=== PATIENT | male | born 1960 | race Caucasian/White ===

== ENCOUNTER 2023-02-02 12:49 | Outpatient (OUT) | payer OTHER, SELFPAY ==
--- NOTE | 2023-02-02 12:57 | US_ITS ---
[facility] [id number] Patient Name: JOSE RAFAEL MCCORMICK MRN: [id number] date: 1960 Sex: M Assigned Patient Location: LAB Current Patient Location: Accession/Order Number: [id number] Exam Date: 02/02/2023 13:00 Report Date: 02/03/2023 12:54 At the request of: AMMON BAE Procedure: US soft tissue head and neck EXAM: US soft tissue head and neck 02/03/2023 9:50 AM PDT, [id number] HISTORY: Lymphadenopathy Cervical R59.0. TECHNIQUE: Multiple longitudinal and transverse grayscale and color sonographic images of the left lateral mid neck were acquired. COMPARISON: None. FINDINGS/IMPRESSION: Targeted evaluation in the left lateral mid neck at the palpable lumps demonstrates 2 round hypoechoic masses which demonstrate mild internal vascularity. The larger of the 2 measures 11 x 8 x 6 mm and the smaller measures 6 x 5 x 4 mm. Fatty eleuterio are present in both masses. Cortical thickness of the larger mass is 2 mm. Image appearance favors mildly prominent lymph nodes which could be reactive although early lymphoma or early metastatic disease could have a similar appearance. Recommend clinical follow-up and CT of the neck with contrast if there is worsening signs/symptoms. Electronically authenticated by: ALEJANDRA QUINTEROS Date: 02/03/2023 12:54
== END 2023-02-02 12:50 | disposition home or self-care (01) ==
LOC: US 12:51
PROVIDERS: PCP Family Medicine; Visit Provider Family Medicine
DX: R59.0 Localized enlarged lymph nodes (principal)
CPT/HCPCS: 76536

== ENCOUNTER 2023-02-05 10:20 | Outpatient (OUT) | payer OTHER, SELFPAY ==
[2023-02-05 10:46] LABS: Basophils Absolute Auto 0.1 10^3/uL (0.0-0.1); Basophils Percent Auto 1.1 % (0.2-2.0); Eosinophils Absolute Auto 0.1 10^3/uL (0.0-0.7); Hematocrit 45.6 % (42.0-54.0); Immature Granulocytes Abs Auto 0.01 10^3/uL (0.00-0.03); Immature Granulocytes Pct Auto 0.2 % (0.0-0.5); Lymphocytes Absolute Auto 1.8 10^3/uL (1.2-3.8); Lymphocytes Percent Auto 33.1 % (20.5-60.0); Mean Corpuscular HGB Conc 37.3 g/dL (29.9-35.2); Mean Corpuscular Hemoglobin 32.3 pg (25.9-34.0); Mean Corpuscular Volume 86.7 fL (80.0-94.0); Monocytes Absolute Auto 0.9 10^3/uL (0.3-0.8); Neutrophils Absolute Auto 2.6 10^3/uL (1.4-6.5); Neutrophils Percent Auto 47.6 % (43.0-75.0); Platelet Count 251 10^3/uL (150-450); Red Blood Count 5.26 10^6/uL (4.70-6.10); Red Cell Distribution Width 12.8 % (11.0-15.0); White Blood Count 5.4 10^3/uL (4.0-11.0)
[2023-02-05 11:18] LABS: Estimated Average Glucose 117 mg/dL; Glycohemoglobin A1C 5.7 % (4.5-6.2)
[2023-02-05 11:59] LABS: Prostate Specific Antigen Scrn 1.67 ng/mL (<=4.00)
[2023-02-05 12:01] LABS: Alanine Aminotransferase 48 U/L (16-63); Albumin Globulin Ratio 1.1; Alkaline Phosphatase 62 U/L (46-116); Anion Gap 10.6; Aspartate Amino Transferase 26 U/L (15-37); BUN Creatinine Ratio 13.2; Bilirubin Direct 0.1 mg/dL (0.0-0.2); Bilirubin Total 0.4 mg/dL (0.2-1.0); Calcium 9.7 mg/dL (8.5-10.1); Carbon Dioxide 28.3 mmol/L (21.0-32.0); Chloride 96 mmol/L (98-107); Chol HDL Ratio 5.9; Cholesterol 202 mg/dL (<=200); Estimated GFR (African America >60 (>=60); Estimated GFR (Non-African Ame >60 (>=60); Globulin 3.8 g/dL; Glucose 107 mg/dL (74-106); HDL Cholesterol 34 mg/dL (40-60); Potassium 3.9 mmol/L (3.5-5.1); Sodium 131 mmol/L (136-145); Thyroid Stimulating Hormone 1.535 uIU/mL (0.358-3.740); Total Protein 7.8 g/dL (6.4-8.2); Triglycerides 199 mg/dL (<=150); VLDL CHOLESTEROL 39.8 mg/dL
== END 2023-02-05 10:21 | disposition home or self-care (01) ==
LOC: LAB 10:20
PROVIDERS: PCP Family Medicine; Visit Provider Family Medicine
DX: Z00.00 Encounter for general adult medical examination without abnormal findings (principal)
CPT/HCPCS: 36415; 80048; 80061; 80076; 83036; 84153; 84154; 84443; 85025; G0103

== ENCOUNTER 2023-02-13 13:23 | Outpatient (OUT) | payer OTHER, SELFPAY ==
--- NOTE | 2023-02-13 13:31 | CT_ITS ---
[address] [address] Patient Name: JOSE RAFAEL MCCORMICK MRN: [id number] date: 1960 Sex: M Assigned Patient Location: CT Current Patient Location: Accession/Order Number: [id number] Exam Date: 02/13/2023 14:00 Report Date: 02/15/2023 07:19 At the request of: AMMON BAE Procedure: CT soft tissue neck w con EXAM: CT scan of the neck using 98 mL of IV iodinated contrast. Dose reduction technique used: Automated exposure control and/or adjustment of the mA and/or kV according to patient size and/or use of iterative reconstruction technique. REASON FOR EXAM: Lymphadenopathy R59.0 COMPARISON: None FINDINGS: No abscess, fluid collection or soft tissue emphysema in the neck. No inflammatory changes in the neck. No cervical lymphadenopathy. No abnormal soft tissue masses. Patent vascular structures in the neck. Normal-appearing lymph nodes are present at the area of the marker overlying the left lateral neck. Calcification along the medial superior aspect of the right submandibular gland measuring approximately [address]/CT soft tissue neck w con IMPRESSION: 1. No abnormal mass or evidence of malignancy in the neck. 2. Possible right submandibular sialogram cholelithiasis. Electronically authenticated by: MICH JARRETT Date: 02/15/2023 07:19
== END 2023-02-13 13:24 | disposition home or self-care (01) ==
LOC: CT 13:24
PROVIDERS: PCP Family Medicine; Visit Provider Family Medicine
DX: R59.0 Localized enlarged lymph nodes (principal)
CPT/HCPCS: 70491; Q9967

== ENCOUNTER 2023-02-23 08:51 | Outpatient (OUT) | payer OTHER, SELFPAY ==
--- NOTE | 2023-02-23 12:30 | P.STRESS_ITS ---
Stress Test Stress Test Requesting physician: López Bolivar Procedure: Exercise stress test General Information: Reason for Stress Test: Chest pain Cardiac History and Risk Factors: Dnies any personal history. Mother has CHF. Resting 12 - Lead Electrocardiogram: Rate & rhythm: Normal sinus at a rate of 90. Goldvein: Right axis deviation T-waves: Normal orientation ST-segments: Normal Stress Test: Protocol: Juan F protocol was followed. Exercise capacity: Good exercise capacity. Total exercise time of 8 minutes reached Juan F stage 3 at 3.4MPH, 14% grade, & 8.3 METs. Blood pressure: Initial: 132/88, Maximum: 216/102, Recovery: 148/88 Rate & rhythm: Patient remained in sinus rhythm during the exercise and recovery portions of the study.? The maximum heart rate was 136, which was 85% of the maximum predicted heart rate 160. ST-segments & T-waves: During recovery, there initially was downsloping in lead III which evolved into 1mm ST segment depression at the end of the recovery period. No changes were noted in II or aVF. Patient response/symptoms: There were no symptoms similar to the chief complaint. Interpretation: This is a non-diagnostic exercise stress test based on ST-segment changes in III only. Holt Treadmill Score is 3, which places patient in a moderate risk category. Clinical correlation required.
== END 2023-02-23 08:52 | disposition home or self-care (01) ==
LOC: CARD 08:51
PROVIDERS: PCP Family Medicine; Visit Provider Family Medicine
DX: R07.9 Chest pain, unspecified (principal)
CPT/HCPCS: 93017

== ENCOUNTER 2023-03-24 14:17 | Emergency (ER) | payer OTHER, SELFPAY ==
[2023-03-24 14:19] VITALS: BP 141/93; PULSE 108; RESP 18; TEMP 37.1; O2SAT 95; BMI 34.5
--- NOTE | 2023-03-24 14:32 | ED_ITS ---
Documented by User: MARCIAL Lyon 03/24/23 14:36 HPI - URI/Sore Throat General Chief Complaint: Upper Respiratory Infection Stated Complaint: COUGH Time Seen by Provider: 03/24/23 14:31 Source: patient Limitations: no limitations History of Present Illness HPI Narrative: 62-year-old male presents with a cough for the past 3 days. He states that he has tried Robitussin-DM [id number] and is not giving him relief. He states that he is here wanting a cough medication. Him and his mother, who is also sick, took an at home COVID test last night and both were negative. Denies fever, SOB or CP Related Data Previous Rx's Medication Instructions Recorded albuterol sulfate 90 mcg/actuation 1 inh inhalation Q6H PRN shortness 03/24/23 aerosol inhaler of breath or wheezing 5 days #6.7 grams benzonatate 200 mg capsule 200 mg PO TID PRN cough 5 days #15 03/24/23 caps Allergies Allergy/AdvReac Type Severity Reaction Status Date / Time No Known Drug Allergies Allergy Verified 03/24/23 14:19 Review of Systems ROS Status of ROS 10 or more systems reviewed and unremarkable except as noted in history and below PFSH PFSH Social History Smoking status: Never smoker Exam Narrative Exam Narrative: General: A&Ox3, no distress, talking in full an complete sentences skin: warm, dry, intact head: normocephalic, atraumatic eyes: PERRLA, EOMI, normal conjunctiva nose: nares patent throat: no stridor neck: supple, trachea midline cardiac: +S1/S1. no murmur respiratory: Expiratory wheezing throughout, coughing with deep breaths, non- labored, no retractions extremities: FROM x 4, strength +5/5 neuro: A&Ox3 psych: appropriate mood and affect, cooperative Constitutional Vital Signs, click to edit/add: Last Vital Signs Temp 98.8 F 03/24/23 14:19 Pulse 85 03/24/23 14:45 Resp 16 03/24/23 14:45 BP 141/93 H 03/24/23 14:19 Pulse Ox 96 03/24/23 14:45 O2 Del Method Room Air 03/24/23 14:45 Course Vital Signs Vital signs: Vital Signs Temperature 98.8 F 03/24/23 14:19 Pulse Rate 108 H 03/24/23 14:19 Respiratory Rate 18 03/24/23 14:19 Blood Pressure 141/93 H 03/24/23 14:19 Pulse Oximetry 95 03/24/23 14:19 Oxygen Delivery Method Room Air 03/24/23 14:19 Temperature 98.8 F 03/24/23 14:19 Pulse Rate 85 03/24/23 14:45 Respiratory Rate 16 03/24/23 14:45 Blood Pressure 141/93 H 03/24/23 14:19 Pulse Oximetry 96 03/24/23 14:45 Oxygen Delivery Method Room Air 03/24/23 14:45 MDM - URI/Sore Throat MDM Narrative Medical decision making narrative: I offered a chest x-ray and patient declines. Likely viral bronchitis and he is medicated with Decadron and given a prescription for albuterol inhaler and Tessalon Perles. Repeat pulse 90. F/u with PCP. afebrile, not tachypneic, not tachycardic, tolerating p.o., not hypoxic, non toxic appearing and ambulating at baseline and hemodynamically stable to be d/c. answered all questions. educated on SE of meds. pt in agreement with tx. educated when to return to ER. Discharge Plan Discharge Chief Complaint: Upper Respiratory Infection Clinical Impression: Acute bronchitis, viral Patient Disposition: Home, Self-Care Time of Disposition Decision: 14:32 Condition: Good Mode of Transportation: Private Vehicle Prescriptions / Home Meds: New albuterol sulfate 90 mcg/actuation HFA aerosol inhaler 1 inh inhalation Q6H PRN (Reason: shortness of breath or wheezing) 5 Days Qty: 6.7 0RF benzonatate 200 mg capsule 200 mg PO TID PRN (Reason: cough) 5 Days Qty: 15 0RF Instructions: Acute Bronchitis (ED) Stand Alone Forms: Portal Instructions Referrals: López Bolivar MD [Primary Care Provider] - 1 week Discharge Date/Time: 03/24/23 14:47 Documented by User: Ubaldo Veliz MD 03/24/23 19:37 HPI - URI/Sore Throat General Chief Complaint: Upper Respiratory Infection Stated Complaint: COUGH Time Seen by Provider: 03/24/23 14:31 Related Data Previous Rx's Medication Instructions Recorded albuterol sulfate 90 mcg/actuation 1 inh inhalation Q6H PRN shortness 03/24/23 aerosol inhaler of breath or wheezing 5 days #6.7 grams benzonatate 200 mg capsule 200 mg PO TID PRN cough 5 days #15 03/24/23 caps Allergies Allergy/AdvReac Type Severity Reaction Status Date / Time No Known Drug Allergies Allergy Verified 03/24/23 14:19 PFSH PFSH Social History Smoking status: Never smoker Exam Constitutional Vital Signs, click to edit/add: Last Vital Signs Temp 98.8 F 03/24/23 14:19 Pulse 85 03/24/23 14:45 Resp 16 03/24/23 14:45 BP 141/93 H 03/24/23 14:19 Pulse Ox 96 03/24/23 14:45 O2 Del Method Room Air 03/24/23 14:45 Course Vital Signs Vital signs: Vital Signs Temperature 98.8 F 03/24/23 14:19 Pulse Rate 108 H 03/24/23 14:19 Respiratory Rate 18 03/24/23 14:19 Blood Pressure 141/93 H 03/24/23 14:19 Pulse Oximetry 95 03/24/23 14:19 Oxygen Delivery Method Room Air 03/24/23 14:19 Temperature 98.8 F 03/24/23 14:19 Pulse Rate 85 03/24/23 14:45 Respiratory Rate 16 03/24/23 14:45 Blood Pressure 141/93 H 03/24/23 14:19 Pulse Oximetry 96 03/24/23 14:45 Oxygen Delivery Method Room Air 03/24/23 14:45 MDM - URI/Sore Throat MDM Narrative Medical decision making narrative: I offered a chest x-ray and patient declines. Likely viral bronchitis and he is medicated with Decadron and given a prescription for albuterol inhaler and Tessalon Perles. Repeat pulse 90. F/u with PCP. afebrile, not tachypneic, not tachycardic, tolerating p.o., not hypoxic, non toxic appearing and ambulating at baseline and hemodynamically stable to be d/c. answered all questions. educated on SE of meds. pt in agreement with tx. educated when to return to ER. I, Dr Veliz, have reviewed the above progress note and course of action in the ER; agree with the above. I have personally seen and evaluated this patient, gone over history and physical, and discussed disposition and treatment plan with the patient. Discharge Plan Discharge Chief Complaint: Upper Respiratory Infection Clinical Impression: Acute bronchitis, viral Patient Disposition: Home, Self-Care Time of Disposition Decision: 14:32 Condition: Good Mode of Transportation: Private Vehicle Prescriptions / Home Meds: New albuterol sulfate 90 mcg/actuation HFA aerosol inhaler 1 inh inhalation Q6H PRN (Reason: shortness of breath or wheezing) 5 Days Qty: 6.7 0RF benzonatate 200 mg capsule 200 mg PO TID PRN (Reason: cough) 5 Days Qty: 15 0RF Instructions: Acute Bronchitis (ED) Stand Alone Forms: Portal Instructions Referrals: López Bolivar MD [Primary Care Provider] - 1 week Discharge Date/Time: 03/24/23 14:47
[2023-03-24] MEDS: DEXAMETHASONE SODIUM PHOSPHATE 10 MG/ML VIAL PO (14:41)
[2023-03-24 14:45] VITALS: PULSE 85; RESP 16; O2SAT 96
== END 2023-03-24 14:47 | disposition home or self-care (01) ==
PROVIDERS: Emergency Provider Emergency Medicine; PCP Family Medicine
DX: J20.9 Acute bronchitis, unspecified (principal)
CPT/HCPCS: 99283; J1100

== ENCOUNTER 2023-04-20 07:34 | Outpatient (OUT) | payer OTHER, SELFPAY ==
--- NOTE | 2023-04-20 | PCN_ITS ---
CARDIAC STRESS TEST Requesting Physician:? Procedure Date:? 04/20/2023 REASON FOR STRESS TEST:? Chest pain. At baseline, patient was noted to have a resting heart rate of 100 beats per minute.? EKG revealed the presence of sinus tachycardia with normal intervals.? Patient exercised to achieve 7 METS, which was achieved with stage 2.? He exercised for a total of 6 minutes and 46 seconds.? There was a change in heart rate from 100 beats per minute to a maximum of 136 beats per minute, achieving a blood pressure from baseline of 134/90 mm/Hg, to a maximum blood pressure 178/110 mm/Hg.? During this time of exercise in stage 2, there was an occasional PVC that was noted in both stage 2 and stage 3 of exercise.? There were no EKG changes suggestive of ischemia in terms of ST elevation or ST segment depression noted during the time of exercise.? Except for an isolated PVC, no other arrhythmias were noted during exercise. IMPRESSION: 1.? No EKG evidence of ischemia noted with < > 2.? Patient did not achieve the expected heart rate, thus raising the concern of chronotropic incompetence.? It is unclear whether the patient was on beta blockers at this time. 3.? Significantly elevated blood pressure readings noted with exercise, which is appropriately noted, but diastolic component is markedly elevated. 4.? Isolated PVC noted during exercise in stage 2 and stage 3 of exercise. 5.? Holt treadmill score of 1.5 indicative of moderate risk of cardiac event. MTDD
--- NOTE | 2023-04-20 07:30 | NM_ITS ---
Patient: JOSE RAFAEL MCCORMICK Exam Date: 04/20/2023 : 1960 Gender:M Ordering : JOSE HARO Admission #: [id number] Family : DR López Bolivar . Order #: [id number] CLICK HERE TO VIEW EXAM RADIOLOGY REPORT PROCEDURE: NM RIRI PERF SPECT REST STR COMPARISON: None. INDICATIONS: CHEST PAIN, DYSPNEA ON EXERTION TECHNIQUE: Exam Description: Stress/Rest one day protocol gated SPECT Rest Imagin.6 mCi Tc-99m Cardiolite IV on 04/20/2023 Stress Imaging 31.4 mCi Tc-99m Cardiolite IV on 04/20/2023 Exercise Protocol: Juan F Heart Rate (bpm): Rest: 100 Max: 136 PMHR: 85 Blood Pressure: Rest: 134/90 Max: 178/110 Exercise Time: Minutes: 6 Seconds: 46 Stage Reached: Stage: 3 Mets 7.0 Symptoms: Rest and peak stress ECG findings were normal and the exercise portion of the study was abnormal per attending physician Dr. Flores due to blood pressure. For more details please see separate cardiac stress test report. FINDINGS: QUALITY OF STUDY: Excellent. PERFUSION DEFECT: None. LOCATION: N/A SIZE: N/A. SEVERITY: N/A. TYPE: N/A. WALL MOTION: Normal. LV SIZE: Normal. 63 mL. TID / TCD: None; 0.8 LVEF: Normal. Calculated EF 80%. SUMMARY: Myocardial perfusion imaging study is NORMAL. CONCLUSION: 1. Normal nuclear medicine myocardial perfusion scan. Dictated by: John Panda M.D. on 04/22/2023 at 14:53 Approved by: John Panda M.D. on 04/22/2023 at 14:57
== END 2023-04-20 07:35 | disposition home or self-care (01) ==
LOC: NM 07:35
PROVIDERS: PCP Family Medicine; Visit Provider Internal Medicine Cardiovascular Disease
DX: R07.9 Chest pain, unspecified (principal); R06.09 Other forms of dyspnea
CPT/HCPCS: 78452; 93017; A9500

== ENCOUNTER 2023-08-25 09:43 | Outpatient (OUT) | payer OTHER, SELFPAY ==
--- OUTSIDE RECORDS SUMMARY | 2023-08-25 09:52 | XMS_ITS | CCD ---
Author Name Unknown Address [address] [place] [address] Organization [facility] Care Team Providers Care Naturalization Examiner Name Role Phone PHYSICIAN, DEFAULT Unavailable Unavailable PHYSICIAN, DEFAULT Unavailable Unavailable NATHALIA CAMACHO Unavailable Unavailable NATHALIA CAMACHO Unavailable Unavailable KATHIA, LÓPEZ Unavailable Unavailable KATHIA, LÓPEZ Unavailable Unavailable López Bae Primary Care Provider MD López Bae Primary Care Provider [phone] Eliezer, PhD Yoni Attending Provider KATHIA, DR LÓPEZ Ho Admitting Unavailable FAUSTINAERESd, DR LÓPEZ Ho Attending Unavailable KATHIA, DR LÓPEZ Ho Primary Care Unavailable KATHIA, DR LÓPEZ Ho Consulting Unavailable KATHIA, DR LÓPEZ Ho Admitting Unavailable NADLYNN, DR LÓPEZ Ho Attending Unavailable KATHIA, DR LÓPEZ Ho Primary Care Unavailable FAUSTINAERESd, DR LÓPEZ Ho Consulting Unavailable HAILE, DR DENTON Admitting Unavailable HAILE, DR DENTON Attending Unavailable KATHIA, DR LÓPEZ Ho Primary Care Unavailable SAVANNA, DR KRYSTIAN Bush Consulting Unavailable HAILE, DR DENTON Consulting Unavailable KATHIA, LÓPEZ Attending Unavailable JOSE HARO Attending Unavailable OJSE HARO Attending Unavailable Medications Completed/Discontinued Medications Medication Drug Class(es) Dates Sig (Normalized) Sig (Original) atenolol 50 mg oral tablet (1 source) beta-Adrenergic Nelli End: 04-02-2012 take 1 tablet by mouth once daily atenolol 50 mg tablet Take 50 mg by mouth once daily. 0 04/02/2012 Discontinued Comment on above: Take 50 mg by mouth once daily. Cetirizine (2 sources) Histamine-1 Receptor Antagonist CETIRIZINE HCL (ZYRTEC ORAL) Take by mouth once daily. 0 Active Comment on above: Take by mouth once d aily. chlorthalidone 25 mg oral tablet (1 source) Thiazide-like Diuretic End: 04-02-2012 take 1 tablet by mouth once daily chlorthalidone 25 mg tablet Take 25 mg by mouth once daily. 0 04/02/2012 Discontinued Comment on above: Take 25 mg by mouth once daily. FLUoxetine 40 mg oral capsule (2 sources) Serotonin Reuptake Inhibitor take 1 capsule by mouth once daily Fluoxetine HCl 40 mg capsule Take 40 mg by mouth once daily. 0 Active Comment on above: Take 40 mg by mouth once daily. levETIRAcetam 500 mg oral tablet (2 sources) Start: 04-02-2012 End: 05-17-2012 leveTIRAcetam 500 mg tablet Take 1.5 tablets twice daily 0 04/02/2012 05/17/2012 Discontinued Start: 02-17-2012 End: 04-02-2012 take 1 tablet by mouth twice daily leveTIRAcetam 500 mg tablet Take 1 tablet by mouth twice daily. 90 tablet 5 02/17/2012 04/02/2012 Discontinued Comment on above: Take 1.5 tablets twi ce daily Take 1 tablet by ozzy th twice daily. 30/70 release 24 hr methylphenidate hydrochloride 40 mg extended release oral capsule (2 sources) Central Nervous System Stimulant End: 04-23-20 12 Methylphenidate (METADATE CD) 40 mg CR capsule Take 40 mg by mouth. 0 04/23/2012 Discontinued Comment on above: Take 40 mg by mouth. omeprazole 40 mg delayed release oral capsule (2 sources) Proton Pump Inhibitor take 1 capsule by mouth once daily Omeprazole 40 mg capsule Take 40 mg by mouth once daily. 0 Active Comment on above: Take 40 mg by mouth once daily. traZODone hydrochloride 100 mg oral tablet (2 sources) Serotonin Reuptake Inhibitor End: 05-12-20 12 take 1 tablet by mouth once daily at bedtime traZODONE 100 mg tablet Take 100 mg by mouth daily at bedtime. 0 05/12/2012 Discontinued (Erroneous entry) Comment on above: Take 100 mg by mouth daily at bedtime. Problems Active Problems Problem Classification Problem Date Documented Da te Episodic/Chronic Disorders of lipid metabolism (2 sources) Hyperlipidemia, unspecified; Translations: [Hyperlipidemia, unspecified] Onset: 02-26-2023 Chronic Joint disorders and dislocations; trauma-related (4 sources) Unspecified internal derangement of right knee; Translations: [UNS INTERNAL DERANGEMENT RIGHT KNEE] Onset: 05-15-2021 Chronic Other circulatory disease (1 source) Stricture of artery; Translations: [STRICTURE OF ARTERY] Onset: 11-05-2017 Chronic Other nervous system disorders (4 sources) Tremor, unspecified; Translations: [TREMOR, UNSPECIFIED] Onset: 11-05-2017 Episodic Other screening for suspected conditions (not mental disorders or infectious disease) (2 sources) Radiology result abnormal; Translations: [Abnormal findings on diagnostic imaging of other specified body structures] Onset: 02-20-2012 02-20-2012 Chronic Other screening for suspected conditions (not mental disorders or infectious disease) (1 source) Encounter for screening for malignant neoplasm of prostate; Translations: [ENC SCREEN MALIG NEOPLASM PROSTATE] Onset: 04-18-2022 Episodic Unclassified (2 sources) Unknown / UNK(Unknown) Onset: 11-05-2017 Unclassified (2 sources) CONTACT W/AND (SUSP) EXPOS COVID-19; Translations: [CONTACT W/AND (SUSP) EXPOS COVID-19] Onset: 06-01-2021 Viral infection (1 source) COVID-19; Translations: [COVID-19] Onset: 06-01-2021 Past or Other Problems Problem Classification Problem Date Documented Da te Episodic/Chronic Epilepsy; convulsions (3 sources) Unspecified convulsions; Translations: [Seizure] Onset: 02-20-2012 02-20-2012 Episodic Nonspecific chest pain (2 sources) Chest pain, unspecified; Translations: [Chest pain, unspecified] Onset: 02-26-2023 Episodic Other lower respiratory disease (2 sources) Shortness of breath; Translations: [Shortness of breath] Onset: 02-26-2023 Episodic Other lower respiratory disease (2 sources) Other forms of dyspnea; Translations: [Other forms of dyspnea] Onset: 02-26-2023 Episodic Unclassified (1 source) CONTACT W/AND (SUSP) EXPOS COVID-19; Translations: [CONTACT W/AND (SUSP) EXPOS COVID-19] Onset: 05-28-2021 Results Test Name Value Interpretation Reference Range Facility Office Visiton 08-14-2023 Follow-up visit [id number] Jose Francisco Hopper 1960 M Date Provider Department Center 08/14/2023 [id number] NETTLES [facility] Family History Problem Relation Age of Onset Heart failure Mother Deep vein thrombosis Father Deep vein thrombosis Brother Coronary artery disease Maternal Grandmother Family Status - Relation Status Age at Mother Father Brother Maternal Grandmother Level of Service:72920 [place] OFFICE/OUTPATIENT ESTABLISHED MOD MDM 30 MIN Normal [facility] Office Visiton 02-26-2023 Follow-up visit [id number] Jose Francisco Hopper 1960 M Date Provider Department Center 02/26/2023 [id number] HARO [facility] Family History Problem Relation Age of Onset Heart failure Mother Deep vein thrombosis Father Deep vein thrombosis Brother Coronary artery disease Maternal Grandmother Family Status - Relation Status Age at Mother Father Brother Maternal Grandmother Level of Service:[address]679 [place] OFFICE/OUTPATIENT NEW MODERATE MDM 45-59 MINUTES Normal [facility] CBC AUTO DIFFon 04-15-2022 BASO # 0.1 103/ul Normal 0.0-0.1 [facility] Comment on above: Performed By: #### C BC #### [facility] [address] [place] [address] Dr. Joe Brian Basophils/100 WBC (Bld) 0.8 % Normal 0.2-2.0 [facility] Comment on above: Performed By: #### C BC #### [facility] [address] [place] [address] Dr. Joe Brian EO # 0.1 103/ul Normal 0.0-0.7 [facility] Comment on above: Performed By: #### C BC #### [facility] [address] [address] [address] Joe Brian Eosinophils/100 WBC (Bld) 1.0 % Normal 0.9-7.0 [facility] Comment on above: Performed By: #### C BC #### [facility] [address] [place] [address] Dr. Joe Brian Erythrocyte distribution width (RBC) [Ratio] 12.9 % Normal 11.0-15.0 [facility] Comment on above: Performed By: #### C BC #### [facility] [address] [place] [address] Dr. Joe Brian Hematocrit (Bld) [Volume fraction] 49.0 % Normal 42.0-54.0 [facility] Comment on above: Performed By: #### C BC #### [facility] [address] [place] [address] Dr. Joe Brian Hemoglobin (Bld) [Mass/Vol] 17.3 g/dL Normal 14.0-18.0 [facility] Comment on above: Performed By: #### C BC #### [facility] [address] [place] [address] Dr. Joe Brian IG # 0.02 10e3/ul Normal 0.00-0.03 [facility] Comment on above: Performed By: #### C BC #### [facility] [address] [place] [address] Dr. Joe Brian IG % 0.3 % Normal 0.0-0.5 [facility] Comment on above: Performed By: #### C BC #### [facility] [address] [place] [address] Dr. Joe Brian LYMPH # 2.4 103/ul Normal 1.2-3.8 [facility] Comment on above: Performed By: #### C BC #### [facility] [address] [place] [address] Dr. Joe Brian Lymphocytes/100 WBC (Bld) 32.3 % Normal 20.5-60.0 [facility] Comment on above: Performed By: #### C BC #### [facility] [address] [place] [address] Dr. Joe Brian MANUAL DIFF REQ NO Normal [facility] Comment on above: Performed By: #### C BC #### [facility] [address] [place] [address] Dr. Joe Brian MCH (RBC) [Entitic mass] 30.9 pg Normal 25.9-34.0 [facility] Comment on above: Performed By: #### C BC #### [facility] [address] [place], [place] [id number] Dr. Joe Brian MCHC (RBC) [Mass/Vol] 35.3 g/dL Critically high 29.9-35.2 [facility] Comment on above: Performed By: #### C BC #### [facility] [address] [place] [address] Dr. Joe Brian MCV (RBC) [Entitic vol] 87.5 fL Normal 80.0-94.0 [facility] Comment on above: Performed By: #### C BC #### [facility] [address] [place] [address] Dr. Joe Brian MONO # 0.9 103/ul Critically high 0.3-0.8 [facility] Comment on above: Performed By: #### C BC #### [facility] [address] [place] [address] Dr. Joe Brian Monocytes/100 WBC (Bld) 12.9 % Critically high 1.7-12.0 [facility] Comment on above: Performed By: #### C BC #### [facility] [address] [place] [address] Dr. Joe Brian NEUT # 3.8 103/ul Normal 1.4-6.5 [facility] Comment on above: Performed By: #### C BC #### [facility] [address] [place] [address] Dr. Joe Brian Neutrophils/100 WBC (Bld) 52.7 % Normal 43.0-75.0 [facility] Comment on above: Performed By: #### C BC #### [facility] [address] [place] [address] Dr. Joe Brian Platelet mean volume (Bld) [Entitic vol] 9.5 fL Normal 9.5-13.5 [facility] Comment on above: Performed By: #### C BC #### [facility] [address] [place] [address] Dr. Joe Brian PLT 277 103/ul Normal 150-450 [facility] Comment on above: Performed By: #### C BC #### [facility] [address] [place] [address] Dr. Joe Brian RBC 5.60 106/ul Normal 4.70-6.10 [facility] Comment on above: Performed By: #### C BC #### [facility] [address] [place] [address] Dr. Joe Brian WBC 7.3 103/ul Normal 4.0-11.0 [facility] Comment on above: Performed By: #### C BC #### [facility] [address] [place] [address] Dr. Joe Brian GLYCOHEMOGLOBIN A1Con 2021 ADA RECOMMENDATION SEE BELOW Normal [facility] Comment on above: Result Comment: ADA RECOMMENDED LIMIT 4.0 - 6.0 ADA THERAPEUTIC TARGET < 7.0 ACTION SUGGESTED > 7.0 Performed By: #### A 1C #### [facility] [address] [place] [address] Dr. Joe Brian Glucose [Mass/Vol] 114 mg/dL Normal [facility] Comment on above: Performed By: #### A 1C #### [facility] [address] [place] [address] Dr. Joe Brian HbA1c (Bld) [Mass fraction] 5.6 % Normal 4.5-6.2 [facility] Comment on above: Performed By: #### A 1C #### [facility] [address] [place] [address] Dr. Joe Brian LIPID PROFILEon 04-15-2022 CHOL-HDL RATIO NORM SEE BELOW Normal [facility] Comment on above: Result Comment: 3.3 - 4.4 LOW RISK 4.4 - 7.1 AVERAGE RISK 7.1 - 11.0 MODERATE RISK >11.0 HIGH RISK Performed By: #### B MP, TSH, LIPID, LIVER #### [facility] [address] [place] [address] Dr. Joe Brian Cholesterol [Mass/Vol] 226 mg/dL Critically high <=200 [facility] Comment on above: Performed By: #### B MP, TSH, LIPID, LIVER #### [facility] [address] [place] [address] Dr. Joe Brian Cholesterol in HDL [Mass/Vol] 32 mg/dL Critically low 40-60 [facility] Comment on above: Performed By: #### B MP, TSH, LIPID, LIVER #### [facility] [address] [address] [address] Joe Brian Cholesterol in LDL [Mass/Vol] 140.2 mg/dL Normal [facility] Comment on above: Performed By: #### B MP, TSH, LIPID, LIVER #### [facility] [address] [address] [address] Joe Brian Cholesterol.total/C holesterol in HDL [Mass ratio] 7.1 {ratio} Normal [facility] Comment on above: Performed By: #### B MP, TSH, LIPID, LIVER #### [facility] [address] [place] [address] Dr. Joe Brian HDL NORMAL > or = 60 mg/dl - LO W CARDIOVASCULAR RISK <40 mg/dl - HIGH CARDIOVASCULAR RISK Normal [facility] Comment on above: Performed By: #### B MP, TSH, LIPID, LIVER #### [facility] [address] [address] [address] Joe Brian LDL CALC NORMAL SEE BELOW Normal [facility] Comment on above: Result Comment: <100 mg/dl OPTIMAL 100 - 129 mg/dl NEAR OR ABOVE OPTIMAL 130 - 159 mg/dl BORDERLINE HIGH 160 - 189 mg/dl HIGH >190 mg/dl VERY HIGH Performed By: #### B MP, TSH, LIPID, LIVER #### [facility] [address] [place] [address] Dr. Joe Brian Triglyceride [Mass/Vol] 269 mg/dL Critically high <=150 [facility] Comment on above: Performed By: #### B MP, TSH, LIPID, LIVER #### [facility] [address] [place] [address] Dr. Joe Brian VLDL CALC 53.8 mg/dL Normal [facility] Comment on above: Performed By: #### B MP, TSH, LIPID, LIVER #### [facility] [address] [address] [address] Joe Brian LIVER PROFILEon 04-15-2022 Albumin [Mass/Vol] 4.0 g/dL Normal 3.4-5.0 [facility] Comment on above: Performed By: #### B MP, TSH, LIPID, LIVER #### [facility] [address] [place] [address] Dr. Joe Brian Albumin/Globulin [Mass ratio] 1.1 {ratio} Normal [facility] Comment on above: Performed By: #### B MP, TSH, LIPID, LIVER #### [facility] [address] [place] [address] Dr. Joe Brian ALP [Catalytic activity/Vol] 75 U/L Normal 46-116 [facility] Comment on above: Performed By: #### B MP, TSH, LIPID, LIVER #### [facility] [address] [place] [address] Dr. Joe Brian ALT [Catalytic activity/Vol] 53 U/L Normal 16-63 [facility] Comment on above: Performed By: #### B MP, TSH, LIPID, LIVER #### [facility] [address] [place] [address] Dr. Joe Brian AST [Catalytic activity/Vol] 29 U/L Normal 15-37 [facility] Comment on above: Performed By: #### B MP, TSH, LIPID, LIVER #### [facility] [address] [place] [address] Dr. Joe Brian BILI, CONJUGATED 0.1 mg/dL Normal 0.0-0.2 [facility] Comment on above: Performed By: #### B MP, TSH, LIPID, LIVER #### [facility] [address] [place] [address] Dr. Joe Brian Bilirubin [Mass/Vol] 0.3 mg/dL Normal 0.2-1.0 [facility] Comment on above: Performed By: #### B MP, TSH, LIPID, LIVER #### [facility] [address] [place] [address] Dr. Joe Brian Globulin (S) [Mass/Vol] 3.8 g/dL Normal [facility] Comment on above: Performed By: #### B MP, TSH, LIPID, LIVER #### [facility] [address] [place] [address] Dr. Joe Brian Protein [Mass/Vol] 7.8 g/dL Normal 6.4-8.2 [facility] Comment on above: Performed By: #### B MP, TSH, LIPID, LIVER #### [facility] [address] [place] [address] Dr. Joe Brian PROF CHEM 8 (BAS METB)on Anion gap [Moles/Vol] 9.3 mmol/L Normal [facility] Comment on above: Performed By: #### B MP, TSH, LIPID, LIVER #### [facility] [address] [place] [address] Dr. Joe Brian Calcium [Mass/Vol] 9.7 mg/dL Normal 8.5-10.1 [facility] Comment on above: Performed By: #### B MP, TSH, LIPID, LIVER #### [facility] [address] [place] [address] Dr. Joe Brian Chloride [Moles/Vol] 96 mmol/L Critically low 98-107 [facility] Comment on above: Performed By: #### B MP, TSH, LIPID, LIVER #### [facility] [address] [place] [address] Dr. Joe Brian CO2 [Moles/Vol] 28.7 mmol/L Normal 21.0-32.0 [facility] Comment on above: Performed By: #### B MP, TSH, LIPID, LIVER #### [facility] [address] [place] [address] Dr. Joe Brian Creatinine [Mass/Vol] 0.86 mg/dL Normal 0.70-1.30 [facility] Comment on above: Performed By: #### B MP, TSH, LIPID, LIVER #### [facility] [address] [place] [address] Dr. Joe Brian EGFR-AF NAURUAN >60 Normal >=60 [facility] Comment on above: Performed By: #### B MP, TSH, LIPID, LIVER #### [facility] [address] [place] [address] Dr. Joe Brian EGFR-NON AF NAURUAN >60 Normal >=60 [facility] Comment on above: Performed By: #### B MP, TSH, LIPID, LIVER #### [facility] [address] [address] [address] Joe Brian Glucose [Mass/Vol] 113 mg/dL Critically high 74-106 [facility] Comment on above: Performed By: #### B MP, TSH, LIPID, LIVER #### [facility] [address] [place] [address] Dr. Joe Brian Potassium [Moles/Vol] 4.0 mmol/L Normal 3.5-5.1 [facility] Comment on above: Performed By: #### B MP, TSH, LIPID, LIVER #### [facility] [address] [place] [address] Dr. Joe Brian Sodium [Moles/Vol] 130 mmol/L Critically low 136-145 [facility] Comment on above: Performed By: #### B MP, TSH, LIPID, LIVER #### [facility] [address] [place] [address] Dr. Joe Brian Urea nitrogen [Mass/Vol] 11.0 mg/dL Normal 7.0-18.0 [facility] Comment on above: Performed By: #### B MP, TSH, LIPID, LIVER #### [facility] [address] [place] [address] Dr. Joe Brian Urea nitrogen/Creatinine [Mass ratio] 12.8 mg/mg Normal [facility] Comment on above: Performed By: #### B MP, TSH, LIPID, LIVER #### [facility] [address] [place] [address] Dr. Joe Brian TSHon 04-15-2022 TSH 1.779 uIU/mL Normal 0.358-3.740 [facility] Comment on above: Performed By: #### B MP, TSH, LIPID, LIVER #### [facility] [address] [place] [address] Dr. Joe Brian [facility]01 SARS-CoV-2 (COVID-19) RNA ALONSO+probe Ql (Unsp spec) Detected Critically abnormal NOT DETECTED [facility] Comment on above: Result Comment: This test is not yet approved or cleared by the [place] FDA. When there are no FDA-approved or cleared tests available, and other criteria are met, FDA can make tests available under an emergency access mechanism called an Emergency Use Authorization (EUA). The EUA for this test is supported by the Equity Structurer of Health and Human Service's (HHS's) declaration that circumstances exist to justify the emergency use of in vitro diagnostics for the detection and/or diagnosis of the virus that causes COVID-19. This EUA will remain in effect (meaning this test can be used) for the duration of the COVID-19 declaration justifying emergency of IVDs, unless it is terminated or revoked by FDA (after which the test may no longer be used). Performed By: #### [facility] #### [facility] [address] [place] [address] Dr. Joe Brian MRI KNEE RT WO CONon -17-2 021 MRI KNEE RT WO CON EXAMINATION: MRI KNE E RT WO CON HISTORY: Derangement of right knee COMPARISON: No relevant comparison available. TECHNIQUE: A complete multi-planar MRI was performed. FINDINGS: MEDIAL COMPARTMENT MEDIAL MENISCUS: Complex tear involving the body and posterior horn extending to the inferior articular surface. There is a thinned extruded appearance of the entire body. CARTILAGE: Moderate chondromalacia with areas of subchondral edema in the femur coronal image 18 measuring 7 mm transversely BONES: Degenerative osteoarthritis with marginal osteophyte formation. Area of bone edema in the medial tibial plateau measuring 1.6 x 1.5 cm coronal image 19 MCL AND MEDIAL CAPSULE: Normal medial collateral ligament and medial capsule. LATERAL COMPARTMENT LATERAL MENISCUS: No visible tear or significant degeneration. CARTILAGE: No visible defect. BONES: No marrow pathology, fracture, or significant arthropathy. LCL/POSTEROLAT COMPLEX: Normal lateral collateral ligament, fascicles, lateral capsule and ligaments. ANTERIOR COMPARTMENT PATELLA: Large area of signal abnormality Ines and medial facet measuring 1.7 x 0.7 cm axial image 6 CARTILAGE: Grade III chondromalacia genu and medial patellar facet TENDONS: Normal. EFFUSION: Small suprapatellar joint effusion ACL: Normal appearing ligament. PCL: Normal appearing ligament. MENISCOFEMORAL: Normal meniscofemoral ligaments. OTHER: Negative. IMPRESSION: Complex tear involving the body and posterior horn of the medial meniscus Chondromalacia with subchondral edema medial facet and genu of the patella as well as the medial femoral condyle Electronically authenticated by: KRYSTIAN HOPKINS Date: 2021-05-15 11:19 Normal [facility] MRI BRAIN TEMPORAL LOBE W WO CONTRASTon 11-05-2017 [facility] [id number] [place] [address] ========Patient Name: JOSE FRANCISCO HOPPER : 1960Sex: MAge: Race: NAMRN: [id number]. Location: LPOPPatient Status: OVisit #: [id number] Date: 10/21/2017 10:35:00 AMCompleted Date: 11/05/2017 01:00 PMRequesting Provider: JUVENTINO CAMACHO Attending Provider: NATHALIA CAMACHO Report Copy To: LÓPEZ BAE Signs & Symptoms: tremorsHistory: order with pt., handwritten order from doctor *Pt. has f/u appt. with clinic on 11/05/17, [facility] [id number] VALID 11/04/17-02/04/18 [id number] PER LORIComments: Exam: MRI BRAIN TEMPORAL LOBE W WO CONTRASTAccession #: [id number] MRI BRAIN TEMPORAL LOBE W WO CONTRAST 11/05/2017 1:01 PM EDT SIGN AND SYMPTOMS: tremors TECHNOLOGIST COMMENTS: History of seizures. QUESTION FOR RADIOLOGIST: PROTOCOL: The following pulse sequences were utilized when imaging the brain and temporal lobe: sagittal T1, diffusion weighted imaging, axial T2 FLAIR, coronal T2 FLAIR (temporal lobe), coronal T2 (temporal lobe), coronal 3D (temporal lobe), coronal T1, and axial GRE. Post contrast imaging obtained in coronal 3D and axial 3D. CONTRAST: Contrast: DOTAREM, 20 milliliter, Intravenous COMPARISON: None. FINDINGS: Extra axial spaces: Age appropriate.Hemorrhage : None.Ventricular system: Within normal limits.Basal cisterns: Within normal limits and not effaced.Cerebral parenchyma: Normal in signal. No pathologic enhancementMidline shift: None..Cerebellum: Within normal limits.Brainstem: Within normal limits. OTHER: Calvarium: Normal marrow signal.Vascular system: Satisfactory flow voids within the anterior and posterior circulation. Tortuous left vertebral artery with minimal mass effect on the medulla slightly left of midlineVisualized Paranasal sinuses: Within normal limits.Visualized Orbits: Within normal limits.Visualized upper cervical spine: Within normal limits.Sella and skull base: Within normal limits. High-resolution temporal lobe imaging did not reveal any evidence of mesial temporal sclerosis or abnormal signal along the hypocampus region IMPRESSION: Unremarkable brain MRI with and without contrast. No evidence of mesial temporal sclerosis or significant pathology in the medial temporal lobes Electronically signed by:Ant Patel. Transcribed by: [email or web address], User Resident: Electronically Signed by: ANT PATEL @ 11/05/2017 02:56 PM Normal [facility] Encounters Encounter Date Encounter Type Care Provider Facility Start: 08-14-2023 End: 08-14-2023 ambulatory [facility] Start: 07-30-2023 End: 07-30-2023 ambulatory LÓPEZ BAE Not Available Start: 02-26-2023 End: 02-26-2023 ambulatory [facility] Start: 04-18-2022 Encounter for genera l adult medical examination without abnormal findings DR LÓPEZ BAE [facility] Start: 04-15-2022 End: 04-16-[address] LÓPEZ BAE Facility: Start: 04-15-2022 End: 04-16-2022 Encounter for general adult medical examination without abnormal findings DR LÓPEZ BAE Facility:[facility] Start: 07-04-2021 End: 07-04-2021 Patient encounter procedure MD López Bae Work Phone: [facility] Start: 05-28-2021 End: 05-28-[address] LÓPEZ BAE Facility:[facility] Start: 05-15-2021 End: 05-16-[address] CORRIE BE Facility: Start: 11-05-2017 End: 11-06-2017 Ambulatory NATHALIA CAMACHO Facility:[facility] Start: 04-28-2017 End: 04-29-2017 Ambulatory DEFAULT PHYSICIAN Facility:[facility] Start: 04-07-2012 End: 04-07-2012 Telephone encounter John Wilburn Work Phone: Neurology Start: 03-18-2012 End: 03-18-2012 Telephone encounter John Wilburn Work Phone: Neurology Comment on above: Video EEG Monitoring Procedures Date Procedure Procedure Detail Performing Clinician Start: 04-15-[address] LÓPEZ FELIPE Comment on above: Performed By: #### P [facility] #### [facility] [address] [place] [address] Dr. Joe Brian Plan of Treatment Date Care Activity Detail Author Start: 02-27-2021 Influenza vaccination INFLUENZA (Sea son Ended) [facility] Start: 2017 PROSTATE CANCER SCRE ENING DISCUSSION PROSTATE CANCER SCREENING DISCUSSION [facility] Start: 05-12-2015 DIABETES SCREEN DIABETES SCREEN [facility] Start: 2012 Screening for malign ant neoplasm of colon [facility] Start: 2012 SHINGRIX VACCINE (1 of 2) ROUSE GRIX VACCINE (1 of 2) [facility] Start: 1997 LIPID SCREEN LIPID SCREEN [facility] Start: 1981 Urine microalbumin profile DTAP,TDAP ,TD (1 - Tdap) [facility] Start: 1980 HEPATITIS C SCREENING HEPATITIS C SC REENING [facility] Start: 1980 HIV SCREENING HIV SCREENING [facility] Start: 1974 Adult depression scr eening assessment DEPRESSION SCREENING [facility] Payers Date Payer Category Payer Unknown [id number] 2011 Unknown MMO [employer] [id number] 2011-2016 PPO [id number] 1960 Unknown [id number] 1960 Unknown [id number] 1960 Unknown [id number] 1960 Unknown [id number] 1959 Unknown [id number] Self-pay Self Pay [id number] Unknown Social History Date Type Detail Facility Start: 02-17-2012 [facility] sm[facility] Start: 02-17-2012 Alcohol intake Current drinke r of alcohol (finding) [facility] Start: 02-17-2012 Alcohol Comment [facility] Start: 1960 Sex Assigned At Not on file [facility] Start: 1960 Sex Assigned At Male F [facility] Progress note 08-14-2023 Note Date & Type Note Facility 08-14-2023 Note Cardiology Clinic No te Chief Complaint: dyspnea on exertion HPI: Jose Francisco Hopper is a 62 y.o. male with a past medical history including HTN and HLD who was referred to cardiology for dyspnea on exertion and chest pain. Patient presents today for follow-up. Stress test was completed, no reversible ischemia was noted. Echocardiogram was denied by insurance. Patient continues to have atypical chest pain that does not seem to be cardiac in etiology. It occurs only at rest. It is not sharp in nature, it is fleeting in nature. He does not have any exertional chest pain. He continues to experience some dyspnea on exertion. He denies any lower extremity edema, orthopnea, paroxysmal nocturnal dyspnea. No additional complaints or concerns at the present time. Cardiology ROS: GENERAL: Denies fever, chills, night sweats, weight loss. HEENT: Denies changes in vision, photophobia, changes in hearing, epistaxis, oral bleeding. CARDIOVASCULAR: Denies chest pain, exertional dyspnea, orthopnea/PND, lower extremity edema, palpitations, lightheadedness/dizziness. RESPIRATORY: Denies SOB, coughing, wheezing GI: Denies abdominal pain, nausea/vomiting, heartburn, melena/hematochezia. RENAL: Denies dysuria, hematuria, flank pain. MSK: Denies muscle weakness/pain, arthralgias/joint pain. NEUROLOGIC: Denies LOC, weakness, numbness, headaches. SKIN: Denies abnormal rashes or bleeding. PSYCH: Denies significant anxiety, depression, sleep disturbances. Past Medical History He has a past medical history of Hyperlipidemia and Hypertension. Surgical History He has a past surgical history that includes Replacement total knee oncologic; Nasal septum surgery; Tonsillectomy; Carpal tunnel release; and Toe Surgery. Social History He reports that he has never smoked. He has never used smokeless tobacco. He reports that he does not currently use alcohol. No history on file for drug use. Family History Family History Problem Relation Name Age of Onset Heart failure Mother Deep vein thrombosis Father Deep vein thrombosis Brother Coronary artery disease Maternal Grandmother Medications Current Outpatient Medications on File Prior to Visit Medication Sig Dispense Refill amitriptyline (Elavil) 150 mg tablet at bedtime. amLODIPine (Norvasc) 10 mg tablet Take 10 mg by mouth in the morning. ARIPiprazole (Abilify) 15 mg tablet 1 (one) time each day at the same time. busPIRone (Buspar) 30 mg tablet Take 1 tablet twice a day by oral route. fenofibrate (Tricor) 145 mg tablet lisinopriL-hydrochlorothiazide 20-25 mg tablet Take 1 tablet by mouth in the morning and at bedtime. OXcarbazepine (Trileptal) 600 mg tablet Take 1 tablet twice a day by oral route. venlafaxine (Effexor) 150 mg 24 hr tablet Take 1 tablet by mouth in the morning. venlafaxine XR (Effexor-XR) 75 mg 24 hr capsule atorvastatin (Lipitor) 40 mg tablet Take 1 tablet (40 mg) by mouth at bedtime. (Patient not taking: Reported on 08/14/2023) 90 tablet 3 No current facility-administered medications on file prior to visit. Allergies Patient has no known allergies. Physical Exam VITAL SIGNS: BP (!) 130/94 (BP Location: Left arm, Patient Position: Sitting) Pulse 100 Ht 1.727 m (5' 8 ) Wt 107 kg (235 lb) SpO2 97% BMI 35.73 kg/m??? Constitutional: Well developed, Well nourished, No acute distress, Non-toxic appearance. HENT: Normocephalic, Atraumatic, Bilateral external ears have normal appearance, Nose appears normal, nares are patent. Eyes: PERRLA, EOMI, Conjunctiva normal, No discharge. Neck: Normal range of motion, No tenderness, Supple, No stridor. No cervical lymphadenopathy noted. Cardiovascular: Normal heart rate, Normal rhythm, No murmurs, No rubs, No gallops. Thorax & Lungs: Normal breath sounds, No respiratory distress, No wheezing, No chest tenderness to palpation. Abdomen: Bowel sounds normal, Soft, Nontender, No masses, No pulsatile masses. Skin: Warm, Dry, No erythema, No rash. Back: No tenderness, No CVA tenderness. Extremities: Intact distal pulses, No edema, No tenderness, No cyanosis, No clubbing. Musculoskeletal: Grossly normal strength in extremities Neurologic: Alert & oriented x 3, no gross focal neurological deficits Psychiatric: Affect normal, Judgment normal, Mood normal. EKG results: No results found for this or any previous visit (from the past 4464 hour(s)). Echo results: No echocardiogram results found for the past 12 months Radiology: MR brain w and wo contrast Narrative: [facility] Department of Radiology [address] [place] [address] == Patient Name: JOSE FRANCISCO HOPPER : 1960 Sex: M Age: Race: NA^Not available Pt. Location: [facility] Patient Status: O Ordered Date: 10/21/2017 10:35:00 AM Completed Date: (more content not included)... [facility] Progress note 08-14-2023 Note Date & Type Note Facility 08-14-2023 Note Patient here for 6 m o follow up chest pain, SOB, and hypertension. Had stress test back in Mar 2023, but his insurance would not approve echo. Dr. Bae recently added amlodipine for better BP control. Denies LE edema so far. States his chest pain is different now, and says it's stabbing in the middle and sometimes lasts minutes at a time. Does not radiate. Says he stopped taking atorvastatin because his cholesterol has been really good lately . Last lipid was drawn in Jan 2023. He denies SOB, palpitations, and lightheadedness/syncope. C/o diaphoresis. Review of Systems Constitutional: Positive for diaphoresis. Cardiovascular: Positive for chest pain ( stabbing ). Musculoskeletal: Positive for arthritis and back pain. All other systems reviewed and are negative. [facility] Progress note 02-26-2023 Note Date & Type Note Facility 02-26-2023 Note New patient here to establish care. Ref from Dr. Bae for abnormal routine treadmill stress test. Nuclear images were denied by patient's insurance. C/o chest pain, SOB w/ exertion, and fatigue. [facility] Progress note 02-26-2023 Note Date & Type Note Facility 02-26-2023 Note Cardiology Clinic No te Chief Complaint: dyspnea on exertion HPI: Jose Francisco Hopper is a 62 y.o. male with a past medical history including HTN and HLD who was referred to cardiology for dyspnea on exertion and chest pain. Patient states that for some time, he has noted worsening dyspnea on exertion and fatigue with activity. He reports occasional mild chest pressure, but this can occur both at rest and with exertion. He denies any additional complaints or concerns. She denies any nausea or vomiting. She denies any dizziness or lightheadedness. She denies any near-syncope or syncope. He denies any lower extremity edema, orthopnea, paroxysmal nocturnal dyspnea. Patient denies any previous history of CVA, PVD, DM, HTN, Depressed LVEF, and CAD. Treadmill stress test performed, which was equivocal due to changes in lead III. No nuclear myocardial perfusion imaging was performed. Patient is concerned because he has a strong family history of coronary artery disease. Cardiology ROS: GENERAL: Denies fever, chills, night sweats, weight loss. HEENT: Denies changes in vision, photophobia, changes in hearing, epistaxis, oral bleeding. CARDIOVASCULAR: Denies chest pain, exertional dyspnea, orthopnea/PND, lower extremity edema, palpitations, lightheadedness/dizziness. RESPIRATORY: Denies SOB, coughing, wheezing GI: Denies abdominal pain, nausea/vomiting, heartburn, melena/hematochezia. RENAL: Denies dysuria, hematuria, flank pain. MSK: Denies muscle weakness/pain, arthralgias/joint pain. NEUROLOGIC: Denies LOC, weakness, numbness, headaches. SKIN: Denies abnormal rashes or bleeding. PSYCH: Denies significant anxiety, depression, sleep disturbances. Past Medical History He has a past medical history of Hyperlipidemia and Hypertension. Surgical History He has a past surgical history that includes Replacement total knee oncologic; Nasal septum surgery; Tonsillectomy; Carpal tunnel release; and Toe Surgery. Social History He reports that he has never smoked. He has never used smokeless tobacco. He reports that he does not currently use alcohol. No history on file for drug use. Family History Family History Problem Relation Name Age of Onset Heart failure Mother Deep vein thrombosis Father Deep vein thrombosis Brother Coronary artery disease Maternal Grandmother Medications Current Outpatient Medications on File Prior to Visit Medication Sig Dispense Refill amitriptyline (Elavil) 150 mg tablet at bedtime. ARIPiprazole (Abilify) 15 mg tablet 1 (one) time each day at the same time. busPIRone (Buspar) 30 mg tablet Take 1 tablet twice a day by oral route. fenofibrate (Tricor) 145 mg tablet lisinopriL-hydrochlorothiazide 20-25 mg tablet Take 1 tablet by mouth in the morning and at bedtime. OXcarbazepine (Trileptal) 600 mg tablet Take 1 tablet twice a day by oral route. venlafaxine (Effexor) 150 mg 24 hr tablet Take 1 tablet by mouth in the morning. venlafaxine XR (Effexor-XR) 75 mg 24 hr capsule No current facility-administered medications on file prior to visit. Allergies Patient has no known allergies. Physical Exam VITAL SIGNS: BP 132/83 (BP Location: Left arm, Patient Position: Sitting) Pulse 88 Ht 1.473 m (4' 10 ) Wt 100 kg (221 lb) SpO2 97% BMI 46.19 kg/m??? Constitutional: Well developed, Well nourished, No acute distress, Non-toxic appearance. HENT: Normocephalic, Atraumatic, Bilateral external ears have normal appearance, Nose appears normal, nares are patent. Eyes: PERRLA, EOMI, Conjunctiva normal, No discharge. Neck: Normal range of motion, No tenderness, Supple, No stridor. No cervical lymphadenopathy noted. Cardiovascular: Normal heart rate, Normal rhythm, No murmurs, No rubs, No gallops. Thorax & Lungs: Normal breath sounds, No respiratory distress, No wheezing, No chest tenderness to palpation. Abdomen: Bowel sounds normal, Soft, Nontender, No masses, No pulsatile masses. Skin: Warm, Dry, No erythema, No rash. Back: No tenderness, No CVA tenderness. Extremities: Intact distal pulses, No edema, No tenderness, No cyanosis, No clubbing. Musculoskeletal: Grossly normal strength in extremities Neurologic: Alert & oriented x 3, no gross focal neurological deficits Psychiatric: Affect normal, Judgment normal, Mood normal. EKG results: No results found for this or any previous visit (from the past 4464 hour(s)). Echo results: No echocardiogram results found for the past 12 months Radiology: MR brain w and wo contrast Narrative: [facility] Department of Radiology [address] [place] [id number] == Patient Name: JOSE FRANCISCO HOPPER : 1960 Sex: M Age: Race: NA^Not available Pt. Location: [facility] Patient Status: O Ordered Date: 10/21/2017 10:35:00 AM Completed (more content not included)... [facility] Note 03-18-2012 Telephone Encounter - English Murphy Guzman [place] - 03/18/2012 10:28 AM EDT Note Date & Type Note Facility 03-18-2012 Miscellaneous Notes I telephoned patient to schedule admit date to EMU. Patient stated that he wants to wait until he sees Dr. John Tabor on April 02. He will call back when he and Dr. Tabor make a decision. documented in this encounter [facility] Evaluation note Note Date & Type Note Facility Evaluation note No assessment information availa [facility] Summary Purpose Family History No Family History Records FoundNo Family History Records FoundNo Family History Records FoundNo Family History Records Found Advance Directives No Advanced Directives Records Found Advance Directive Response Recorded Date/ Time Advance Directives No July 03, 2021 2:01pm Chief Complaint and Reason for Visit Chief Complaint Cognitive Disability Additional Source Comments (unrecognized sect ion and content) No Status Records FoundNo Status Records FoundNo Status Records FoundNo Status Records Found INFORMATION SOURCE (unrecogn ized section and content) DATE CREATED AUTHOR 12/16/2017 [facility] DATE CREATED AUTHOR AUTHOR'S ORGANIZ ATION 04/20/[address] [facility] DATE CREATED AUTHOR AUTHOR'S ORGANIZ ATION 07/31/2023 [facility] dical [facility] DATE CREATED AUTHOR AUTHOR'S ORGANIZ ATION 08/16/2023 [facility] Source Comments (unrecognize d section and content) In the event this informatio n is protected by the Federal Confidentiality of Alcohol and Drug Abuse Patient Records regulations: The Federal rules restrict any use of the information to criminally investigate or prosecute any alcohol or drug abuse patient[facility] the event this information is protected by the Federal Confidentiality of Alcohol and Drug Abuse Patient Records regulations: The Federal rules restrict any use of the information to criminally investigate or prosecute any alcohol or drug abuse patient.[facility] Reason for Visit (unrecogniz ed section and content) Reason Onset Date Comments Video EEG Monitoring 03/18/2012 Goals (unrecognized section and content) Goals may be documented in a n alternate section FOR RECORDS PERTAINING TO PATIENTS WHO ARE OR HAVE BEEN ENROLLED IN A CHEMICAL DEPENDENCY/SUBSTANCEABUSE PROGRAM, SOME INFORMATION MAY BE OMITTED. This clinical summary was aggregated from multiple sources. Caution should be exercised in using it in the provision of clinical care. This summary normalizes information from multiple sources, and as a consequence, information in this document may materially change the coding, format and clinical context of patient data. In addition, data may be omitted in some cases. CLINICAL DECISIONS SHOULD BE BASED ON THE PRIMARY CLINICAL RECORDS. [facility] [employer] [facility]. provides no warranty or guarantee of the accuracy or completeness of information in this document.
--- NOTE | 2023-08-25 10:00 | CA_ITS ---
Patient Name: JOSE RAFAEL MCCORMICK MR#: [id number] : 1960 Exam Date: 08/25/2023 Ordering Doctor: JOSE HARO M.D. ECHOCARDIOGRAM REPORT PROCEDURE: CA ECHO DOPPLER COMPLETE INDICATIONS: ADAME, Abnormal EKG, Tachycardia, hypertension COMPARISON: None. DESCRIPTION: COMPLETE ECHOCARDIOGRAM Real-time transthoracic echocardiography with 2D, M-mode, spectral and color flow Doppler performed. QUALITY: Technically difficult due to patient's condition. 68 , 227#, BSA 2.16 m2 LEFT VENTRICLE: Small chamber size. Proximal septal hypertrophy (sigmoid septum). LV EF: Global left ventricular systolic function is difficult to assess but appears hyperdynamic; visually estimated ejection fraction is 65 to 70%. Unable to assess regional wall motion abnormalities. DIASTOLIC: Normal diastolic function. ATRIAL SEPTUM: Inadequately seen. LEFT ATRIUM: Normal chamber size. RIGHT ATRIUM: Normal chamber size. RIGHT VENTRICLE: Normal chamber size. Normal right ventricular systolic function. TRICUSPID VALVE: Normal mobility and thickness. Trivial regurgitation. No evidence of pulmonary hypertension. RVSP 25 mmHg MITRAL VALVE: Normal mobility and thickness. No evidence of mitral valve stenosis. Mild mitral annular calcification. Trivial mitral regurgitation. AORTIC VALVE: Normal trileaflet appearance. No visible sclerosis. Normal leaflet mobility. No evidence of aortic valve stenosis. No aortic regurgitation. AORTIC ROOT: Normal diameter and appearance. PULMONIC VALVE: Not well visualized. No stenosis. No regurgitation. PERICARDIUM: Anterior free space; trivial effusion versus fat pad. IVC: Collapses with inspirations. IVC is normal in size. PLEURA: CONCLUSION: 1. Global left ventricular systolic function is hyperdynamic; visually estimated ejection fraction is 65 to 70% 2. Normal right ventricular size and systolic function 3. Normal diastolic function 4. No significant valvular abnormality; valvular structures are poorly seen 5. Anterior free space; trivial effusion versus fat pad Adult Echocardiography Procedure Report Left Ventricle LVEDD (3.7 - 5.6 cm): 3.35 cm LVESD (2.2 - 4.0 cm): 1.94 cm LVIVS thickness (0.6 - 1.2 cm): 1.19 cm LVPW thickness (0.5 - 1.0 cm): 1.27 cm e': 0.08 m/s E - e': 7.92 LVOT Max Gradient: 7.43 mm[Hg] LVOT Area (cm2): 1.36 m/s Peak Velocity (LVOT): 1.36 m/s Mean Velocity (LVOT): 0.84 m/s LVOT Diameter 1.90 cm Left Atrium LA Volume Index (2D A2C): 26.87 ml/m2 Left Atrium Systolic Dimension: 4.10 cm Mitral Valve MV E to A Ratio: 0.74 Mitral Valve A-Wave Peak Velocity: 0.85 m/s Mitral Valve E-Wave Peak Velocity: 0.63 m/s Right Ventricle Aorta AO Root Diam: 2.69 cm Aortic Valve AoV Area (Peak Rios): 3.25 cm2, 3.30 cm2 AoV Area (VTI): 3.17 cm2, 3.26 cm2 Peak Velocity(Antegrade Flow): 1.17 m/s, 1.21 m/s Peak Gradient(Antegrade Flow): 5.48 mm[Hg], 5.83 mm[Hg] Mean Velocity(Antegrade Flow): 0.78 m/s, 0.79 m/s Mean Gradient(Antegrade Flow): 2.80 mm[Hg], 2.93 mm[Hg] Velocity Time Integral: 20.65 cm, 21.75 cm Tricuspid Valve Peak Velocity (Regurgitant Flow): 2.16 m/s, 2.35 m/s Pulmonic Valve Mean Gradient: 2.17 mm[Hg], 2.34 mm[Hg] Mean Velocity: 0.69 m/s, 0.72 m/s Peak Velocity: 0.99 m/s Peak Gradient: 3.81 mm[Hg], 4.10 mm[Hg] Right Atrium Right Atrium Systolic Pressure: 32.70 ml, 32.70 ml Dictated by: Cheryl Londono M.D. on 08/26/2023 at 13:19 Approved by: Cheryl Londono M.D. on 08/26/2023 at 13:22
== END 2023-08-25 09:44 | disposition home or self-care (01) ==
LOC: CARD 09:43
PROVIDERS: PCP Family Medicine; Visit Provider Internal Medicine Cardiovascular Disease
DX: R06.02 Shortness of breath (principal); R06.09 Other forms of dyspnea; R94.31 Abnormal electrocardiogram [ECG] [EKG]
CPT/HCPCS: 93306

== ENCOUNTER 2023-10-03 14:18 | Emergency (ER) | payer OTHER, SELFPAY ==
[2023-10-03 14:23] VITALS: BP 151/94; PULSE 97; TEMP 36.7; O2SAT 96; BMI 35.7
--- NOTE | 2023-10-03 14:26 | XR_ITS ---
[address] [address] Patient Name: JOSE RAFAEL MCCORMICK MRN: [id number] date: 1960 Sex: M Assigned Patient Location: ER Current Patient Location: ER Accession/Order Number: [id number] Exam Date: 10/03/2023 14:35 Report Date: 10/03/2023 15:35 At the request of: OVI CESAR Procedure: XR chest 2V EXAM: XR chest 2V HISTORY: rib pain COMPARISON: None. TECHNIQUE: 2 views of the chest FINDINGS: Heart size normal. No focal consolidation, pleural effusion, pulmonary congestion or pneumothorax. XR/XR chest 2V IMPRESSION: No acute findings. Electronically authenticated by: MAUREEN BLEDSOE Date: 10/03/2023 15:35
--- OUTSIDE RECORDS SUMMARY | 2023-10-03 14:41 | XMS_ITS | CCD ---
Author Organization [facility] Care Team Providers Care Blanket Inspector Name Role Phone PHYSICIAN, DEFAULT Unavailable Unavailable PHYSICIAN, DEFAULT Unavailable Unavailable CAMACHO, AJAZ Unavailable Unavailable , DIANAAZ Unavailable Unavailable LÓPEZ BAE Unavailable Unavailable LÓPEZ BAE Unavailable Unavailable López Bae Primary Care Provider MD López Bae Primary Care Provider [phone] Eliezer, PhD Yoni Attending Provider KATHIA, DR LÓPEZ Ho Admitting Unavailable NADERESd, DR LÓPEZ Ho Attending Unavailable NADERESd, DR LÓPEZ Ho Primary Care Unavailable NADERER, DR LÓPEZ Ho Consulting Unavailable NADERESd, DR LÓPEZ Ho Admitting Unavailable NADLYNN, DR LÓPEZ Ho Attending Unavailable KATHIA, DR LÓPEZ Ho Primary Care Unavailable NADERESd, DR LÓPEZ Ho Consulting Unavailable HAILE, DR DENTON Admitting Unavailable HAILE, DR DENTON Attending Unavailable NADLYNN, DR LÓPEZ Ho Primary Care Unavailable SUTTON, DR KRYSTIAN Bush Consulting Unavailable HAILE, DR DENTON Consulting Unavailable JOSE HARO Attending Unavailable JOSE HARO Attending Unavailable NADLÓPEZ BAILEY Attending Unavailable NADERESd, LÓPEZ Attending Unavailable AKILAHMIDAVY Lopez Attending Unavailable KATHIA, LÓPEZ Referring Unavailable Medications Completed/Discontinued Medications Medication Drug Class(es) [...] Range Facility Office Visiton 08-14-2023 Follow-up visit [id number] Jose Francisco Hopper 1960 M Date Provider Department Center 08/14/2023 8937-JOSE HARO [facility] Family History Problem Relation Age of Onset Heart failure Mother Deep vein thrombosis Father Deep vein thrombosis Brother Coronary artery disease Maternal Grandmother Family Status - Relation Status Age at Mother Father Brother Maternal Grandmother Level of Service:95261 [place] OFFICE/OUTPATIENT ESTABLISHED MOD MDM 30 MIN Normal [facility] Office Visiton 02-26-2023 Follow-up visit [id number] Jose Francisco Hopper 1960 M Date Provider Department [place] 02/26/2023 3848JOSE HARO [facility] Family History Problem Relation Age of Onset Heart failure Mother Deep vein thrombosis Father Deep vein thrombosis Brother Coronary artery disease Maternal Grandmother Family Status - Relation Status Age at Mother Father Brother Maternal Grandmother Level of Service:37326 [place] OFFICE/OUTPATIENT NEW MODERATE MDM 45-59 MINUTES Normal [facility] CBC AUTO DIFFon 04-15-2022 BASO # 0.1 103/ul Normal 0.0-0.1 [facility] Comment on above: Performed By: #### C BC #### [facility] [address] [place] [address] Dr. Joe Brian Basophils/100 WBC (Bld) 0.8 % Normal 0.2-2.0 [facility] Comment on above: Performed By: #### C BC #### [facility] [address] [place] [address] Dr. Joe Brian EO # 0.1 103/ul Normal 0.0-0.7 [facility] Comment on above: Performed By: #### C BC #### [facility] [address] [place] [address] Dr. Joe Brian Eosinophils/100 WBC (Bld) 1.0 % Normal 0.9-7.0 [facility] Comment on above: Performed By: #### C BC #### [facility] [address] [place] [address] Dr. Joe Brian Erythrocyte distribution width (RBC) [Ratio] 12.9 % Normal 11.0-15.0 [facility] Comment on above: Performed By: #### C BC #### [facility] [address] [place] [address] Dr. Joe Brian Hematocrit (Bld) [Volume fraction] 49.0 % Normal 42.0-54.0 [facility] Comment on above: Performed By: #### C BC #### [facility] [address] [place] [address] Dr. Joe Brian Hemoglobin (Bld) [Mass/Vol] 17.3 g/dL Normal 14.0-18.0 [facility] Comment on above: Performed By: #### C BC #### [facility] [address] [place] [address] Dr. Joe Brian IG # 0.02 10e3/ul Normal 0.00-0.03 [facility] Comment on above: Performed By: #### C BC #### [facility] [address] [place] [address] Dr. Joe Brian IG % 0.3 % Normal 0.0-0.5 [facility] Comment on above: Performed By: #### C BC #### [facility] [address] [place] [address] Dr. Joe Brian LYMPH # 2.4 103/ul Normal 1.2-3.8 [facility] Comment on above: Performed By: #### C BC #### [facility] [address] [place] [address] Dr. Joe Brian Lymphocytes/100 WBC (Bld) 32.3 % Normal 20.5-60.0 [facility] Comment on above: Performed By: #### C BC #### [facility] [address] [place] [address] Dr. Joe Brian MANUAL DIFF REQ NO Normal [facility] Comment on above: Performed By: #### C BC #### [facility] [address] [place] [address] Dr. Joe Brian MCH (RBC) [Entitic mass] 30.9 pg Normal 25.9-34.0 [facility] Comment on above: Performed By: #### C BC #### [facility] [address] [place] [address] Dr. Joe Brian MCHC (RBC) [Mass/Vol] 35.3 g/dL Critically high 29.9-35.2 [facility] Comment on above: Performed By: #### C BC #### [facility] [address] [address] [address] Joe Brian MCV (RBC) [Entitic vol] 87.5 fL Normal 80.0-94.0 [facility] Comment on above: Performed By: #### C BC #### [facility] [address] [address] [address] Joe Brian MONO # 0.9 103/ul Critically high 0.3-0.8 [facility] Comment on above: Performed By: #### C BC #### [facility] [address] [address] [address] Joe Brian Monocytes/100 WBC (Bld) 12.9 % Critically high 1.7-12.0 [facility] Comment on above: Performed By: #### C BC #### [facility] [address] [address] [address] Joe Brian NEUT # 3.8 103/ul Normal 1.4-6.5 [facility] Comment on above: Performed By: #### C BC #### [facility] [address] [address] [address] Joe Brian Neutrophils/100 WBC (Bld) 52.7 % Normal 43.0-75.0 [facility] Comment on above: Performed By: #### C BC #### [facility] [address] [address] [address] Joe Brian Platelet mean volume (Bld) [Entitic vol] 9.5 fL Normal 9.5-13.5 [facility] Comment on above: Performed By: #### C BC #### [facility] [address] [address] [address] Joe Brian PLT 277 103/ul Normal 150-450 [facility] Comment on above: Performed By: #### C BC #### [facility] [address] [address] [address] Joe Brian RBC 5.60 106/ul Normal 4.70-6.10 [facility] Comment on above: Performed By: #### C BC #### [facility] [address] [place] [address] Dr. Joe Brian WBC 7.3 103/ul Normal 4.0-11.0 [facility] Comment on above: Performed By: #### C BC #### [facility] [address] [place] [address] Dr. Joe Brian GLYCOHEMOGLOBIN A1Con 2021 ADA RECOMMENDATION SEE BELOW Normal [facility] Comment on above: Result Comment: ADA RECOMMENDED LIMIT 4.0 - 6.0 ADA THERAPEUTIC TARGET < 7.0 ACTION SUGGESTED > 7.0 Performed By: #### A 1C #### [facility] [address] [place] [address] Dr. Joe Brian Glucose [Mass/Vol] 114 mg/dL Normal [facility] Comment on above: Performed By: #### A 1C #### [facility] [address] [place] [address] Dr. Joe Brian HbA1c (Bld) [Mass fraction] 5.6 % Normal 4.5-6.2 [facility] Comment on above: Performed By: #### A 1C #### [facility] [address] [place] [address] Dr. Joe Brian LIPID PROFILEon 04-15-2022 CHOL-HDL RATIO NORM SEE BELOW Normal [facility] Comment on above: Result Comment: 3.3 - 4.4 LOW RISK 4.4 - 7.1 AVERAGE RISK 7.1 - 11.0 MODERATE RISK >11.0 HIGH RISK Performed By: #### B MP, TSH, LIPID, LIVER #### [facility] [address] [place] [address] Dr. Joe Brian Cholesterol [Mass/Vol] 226 mg/dL Critically high <=200 [facility] Comment on above: Performed By: #### B MP, TSH, LIPID, LIVER #### [facility] [address] [place] [address] Dr. Joe Brian Cholesterol in HDL [Mass/Vol] 32 mg/dL Critically low 40-60 [facility] Comment on above: Performed By: #### B MP, TSH, LIPID, LIVER #### [facility] [address] [address] [address] Joe Brian Cholesterol in LDL [Mass/Vol] 140.2 mg/dL Normal [facility] Comment on above: Performed By: #### B MP, TSH, LIPID, LIVER #### [facility] [address] [address] [address] Joe Brian Cholesterol.total/C holesterol in HDL [Mass ratio] 7.1 {ratio} Normal [facility] Comment on above: Performed By: #### B MP, TSH, LIPID, LIVER #### [facility] [address] [place] [address] Dr. Joe Brian HDL NORMAL > or = 60 mg/dl - LO W CARDIOVASCULAR RISK <40 mg/dl - HIGH CARDIOVASCULAR RISK Normal [facility] Comment on above: Performed By: #### B MP, TSH, LIPID, LIVER #### [facility] [address] [place] [address] Dr. Joe Brian LDL CALC NORMAL SEE BELOW Normal [facility] Comment on above: Result Comment: <100 mg/dl OPTIMAL 100 - 129 mg/dl NEAR OR ABOVE OPTIMAL 130 - 159 mg/dl BORDERLINE HIGH 160 - 189 mg/dl HIGH >190 mg/dl VERY HIGH Performed By: #### B MP, TSH, LIPID, LIVER #### [facility] [address] [place] [address] Dr. Joe Brian Triglyceride [Mass/Vol] 269 mg/dL Critically high <=150 [facility] Comment on above: Performed By: #### B MP, TSH, LIPID, LIVER #### [facility] [address] [place] [address] Dr. Joe Brian VLDL CALC 53.8 mg/dL Normal [facility] Comment on above: Performed By: #### B MP, TSH, LIPID, LIVER #### [facility] [address] [address] [address] Joe Brian LIVER PROFILEon 04-15-2022 Albumin [Mass/Vol] 4.0 g/dL Normal 3.4-5.0 [facility] Comment on above: Performed By: #### B MP, TSH, LIPID, LIVER #### [facility] [address] [place] [address] Dr. Joe Brian Albumin/Globulin [Mass ratio] 1.1 {ratio} Normal [facility] Comment on above: Performed By: #### B MP, TSH, LIPID, LIVER #### [facility] [address] [place] [address] Dr. Joe Brian ALP [Catalytic activity/Vol] 75 U/L Normal 46-116 [facility] Comment on above: Performed By: #### B MP, TSH, LIPID, LIVER #### [facility] [address] [place] [address] Dr. Joe Brian ALT [Catalytic activity/Vol] 53 U/L Normal 16-63 [facility] Comment on above: Performed By: #### B MP, TSH, LIPID, LIVER #### [facility] [address] [place] [address] Dr. Joe Brian AST [Catalytic activity/Vol] 29 U/L Normal 15-37 [facility] Comment on above: Performed By: #### B MP, TSH, LIPID, LIVER #### [facility] [address] [place] [address] Dr. Joe Brian BILI, CONJUGATED 0.1 mg/dL Normal 0.0-0.2 [facility] Comment on above: Performed By: #### B MP, TSH, LIPID, LIVER #### [facility] [address] [place] [address] Dr. Joe Brian Bilirubin [Mass/Vol] 0.3 mg/dL Normal 0.2-1.0 [facility] Comment on above: Performed By: #### B MP, TSH, LIPID, LIVER #### [facility] [address] [place] [address] Dr. Joe Brian Globulin (S) [Mass/Vol] 3.8 g/dL Normal [facility] Comment on above: Performed By: #### B MP, TSH, LIPID, LIVER #### [facility] [address] [place] [address] Dr. Joe Brian Protein [Mass/Vol] 7.8 g/dL Normal 6.4-8.2 [facility] Comment on above: Performed By: #### B MP, TSH, LIPID, LIVER #### [facility] [address] [place] [address] Dr. Joe Brian PROF CHEM 8 (BAS METB)on Anion gap [Moles/Vol] 9.3 mmol/L Normal [facility] Comment on above: Performed By: #### B MP, TSH, LIPID, LIVER #### [facility] [address] [place] [address] Dr. Joe Brian Calcium [Mass/Vol] 9.7 mg/dL Normal 8.5-10.1 [facility] Comment on above: Performed By: #### B MP, TSH, LIPID, LIVER #### [facility] [address] [place] [address] Dr. Joe Brian Chloride [Moles/Vol] 96 mmol/L Critically low 98-107 [facility] Comment on above: Performed By: #### B MP, TSH, LIPID, LIVER #### [facility] [address] [place] [address] Dr. Joe Brian CO2 [Moles/Vol] 28.7 mmol/L Normal 21.0-32.0 [facility] Comment on above: Performed By: #### B MP, TSH, LIPID, LIVER #### [facility] [address] [place] [address] Dr. Joe Brian Creatinine [Mass/Vol] 0.86 mg/dL Normal 0.70-1.30 [facility] Comment on above: Performed By: #### B MP, TSH, LIPID, LIVER #### [facility] [address] [place] [address] Dr. Joe Brian EGFR-AF NIGERIAN >60 Normal >=60 [facility] Comment on above: Performed By: #### B MP, TSH, LIPID, LIVER #### [facility] [address] [place] [address] Dr. Joe Brian EGFR-NON AF NIGERIAN >60 Normal >=60 [facility] Comment on above: Performed By: #### B MP, TSH, LIPID, LIVER #### [facility] [address] [place] [address] Dr. Joe Brian Glucose [Mass/Vol] 113 mg/dL Critically high 74-106 [facility] Comment on above: Performed By: #### B MP, TSH, LIPID, LIVER #### [facility] [address] [place] [address] Dr. Joe Brian Potassium [Moles/Vol] 4.0 mmol/L Normal 3.5-5.1 [facility] Comment on above: Performed By: #### B MP, TSH, LIPID, LIVER #### [facility] [address] [place] [address] Dr. Joe Brian Sodium [Moles/Vol] 130 mmol/L Critically low 136-145 [facility] Comment on above: Performed By: #### B MP, TSH, LIPID, LIVER #### [facility] [address] [place] [address] Dr. Joe Brian Urea nitrogen [Mass/Vol] 11.0 mg/dL Normal 7.0-18.0 [facility] Comment on above: Performed By: #### B MP, TSH, LIPID, LIVER #### [facility] [address] [place] [address] Dr. Joe Brian Urea nitrogen/Creatinine [Mass ratio] 12.8 mg/mg Normal [facility] Comment on above: Performed By: #### B MP, TSH, LIPID, LIVER #### [facility] [address] [place] [address] Dr. Joe Brian TSHon 04-15-2022 TSH 1.779 uIU/mL Normal 0.358-3.740 [facility] Comment on above: Performed By: #### B MP, TSH, LIPID, LIVER #### [facility] [address] [place] [address] Dr. Joe Brian [facility]on 05-01 SARS-CoV-2 (COVID-19) RNA ALONSO+probe Ql (Unsp spec) Detected Critically abnormal NOT DETECTED [facility] Comment on above: Result Comment: This test is not yet approved or cleared by the [place] FDA. When there are no FDA-approved or cleared tests available, and other criteria are met, FDA can make tests available under an emergency access mechanism called an Emergency Use Authorization (EUA). The EUA for this test is supported by the [place] of Health and Human Service's (HHS's) declaration [...] longer be used). Performed By: #### C [facility] #### [facility] [address] [place] [address] Dr. Joe Brian MRI KNEE RT WO CONon 17-2 021 MRI KNEE RT WO CON EXAMINATION: [...] by: KRYSTIAN HOPKINS Date: 2021-05-15 11:19 Normal [facility] MRI BRAIN TEMPORAL LOBE W WO CONTRASTon 11-05-2017 MRI BRAIN TEMPORAL LOBE W WO CONTRAST [facility] [id number] [place] [address] ========Patient Name: JOSE FRANCISCO HOPPER : 1960Sex: MAge: Race: NAMRN: [id number]. Location: LPOPPatient Status: OVisit #: [id number] Date: 10/21/2017 10:35:00 AMCompleted Date: 11/05/2017 01:00 PMRequesting Provider: JUVENTINO CAMACHO Attending Provider: NATHALIA CAMACHO Report Copy To: LÓPEZ BAE Signs & Symptoms: tremorsHistory: order with pt., handwritten order from doctor *Pt. has f/u appt. with clinic on 11/05/17, [facility] [id number] VALID 11/04/17-02/04/18 [id number] PER LORIComments: Exam: MRI BRAIN TEMPORAL LOBE W WO CONTRASTAccession #: [id number] MRI BRAIN TEMPORAL LOBE W WO CONTRAST [...] lobes Electronically signed by:Ant Patel. Transcribed by: [email or web address], User Resident: Electronically Signed by: ANT PATEL @ 11/05/2017 02:56 PM Normal [facility] Encounters Encounter Date Encounter Type Care Provider Facility Start: 09-15-2023 End: 09-15-2023 ambulatory DAVY MONTEJO Not Available Start: 08-31-2023 End: 08-31-2023 ambulatory LÓPEZ BAE Not Available Start: 08-14-2023 End: 08-14-2023 ambulatory [facility] Start: 07-30-2023 End: 07-30-2023 ambulatory LÓPEZ BAE Not Available Start: 02-26-2023 End: 02-26-2023 ambulatory [facility] Start: 04-18-2022 Encounter for genera l adult medical examination without abnormal findings DR LÓPEZ BAE [facility] Start: 04-15-2022 End: 04-16-[address] LÓPEZ BAE Facility:[facility] Start: 04-15-2022 End: 04-16-2022 Encounter for general adult medical examination without abnormal findings DR LÓPEZ BAE Facility:[facility] Start: 07-04-2021 End: 07-04-2021 Patient encounter procedure MD López Bae Work Phone: [facility] Start: 05-28-2021 End: 05-28-[address] LÓPEZ BAE Facility:[facility] Start: 05-15-2021 End: 05-16-[address] CORRIE BE Facility:[facility] Start: 11-05-2017 End: 11-06-2017 Ambulatory NATHALIA CAMACHO Facility:[facility] Start: 04-28-2017 End: 04-29-2017 Ambulatory DEFAULT PHYSICIAN Facility:[facility] Start: 04-07-2012 End: 04-07-2012 Telephone encounter John Wilburn Work Phone: Neurology Start: 03-18-2012 End: 03-18-2012 Telephone encounter John Wilburn Work Phone: Neurology Comment on above: Video EEG Monitoring Procedures Date Procedure Procedure Detail Performing Clinician Start: 04-15-[address] LÓPEZ FELIPE Comment on above: Performed By: #### P [facility] #### [facility] [address] [place] [address] Dr. Joe Brian Plan of Treatment Date Care Activity Detail Author Start: 02-27-2021 Influenza vaccination INFLUENZA (Sea son Ended) [facility] Start: 2017 PROSTATE CANCER SCRE ENING DISCUSSION PROSTATE CANCER SCREENING DISCUSSION [facility] Start: 05-12-2015 DIABETES SCREEN DIABETES SCREEN [facility] Start: 2012 Screening for malign ant neoplasm of colon [facility] Start: 2012 SHINGRIX VACCINE (1 of 2) ROUSE GRIX VACCINE (1 of 2) [facility] Start: 1997 LIPID SCREEN LIPID SCREEN [facility] Start: 1981 Urine microalbumin profile DTAP,TDAP ,TD (1 - Tdap) [facility] Start: 1980 HEPATITIS C SCREENING HEPATITIS C SC REENING [facility] Start: 1980 HIV [facility]CRE[facility] Start: 1974 Adult depression scr eening assessment DEPRESSION SCREENING [facility] Payers Date Payer Category Payer Unknown [id number] 2011 Unknown MMO MMO [employer] [id number] 2011-2016 PPO [id number] 1960 Unknown [id number] 1960 Unknown [id number] 1960 Unknown [id number] 1960 Unknown [id number] 1960 Unknown [id number] 1960 Unknown [id number] 1959 Unknown [id number] Self-pay Self Pay [id number] Unknown Social History Date Type Detail Facility Start: 02-17-2012 [facility] Start: 02-17-2012 Alcohol intake Current drinke r of alcohol (finding) [facility] Start: 02-17-2012 Alcohol Comment Social [facility] Start: 1960 Sex Assigned At Not [facility] Start: 1960 Sex Assigned At Male F [facility] Progress note 08-14-2023 Note Date & [...] MR brain w and wo contrast Narrative: [facility] Department of Radiology [address] [place], [place] [address] == Patient Name: JOSE FRANCISCO HOPPER : 1960 Sex: M Age: Race: NA^Not available Pt. Location: [facility] Patient Status: O Ordered Date: 10/21/2017 10:35:00 AM Completed Date: (more content not included)... [facility] Progress note 08-14-2023 Note Date & [...] All other systems reviewed and are negative. [facility] Progress note 02-26-2023 Note Date & Type Note Facility 02-26-2023 Note New patient here to establish care. Ref from Dr. Bae for abnormal routine treadmill stress test. Nuclear images were denied by patient's insurance. C/o chest pain, SOB w/ exertion, and fatigue. [facility] Progress note 02-26-2023 Note Date & [...] MR brain w and wo contrast Narrative: [facility] Department of Radiology [address] [place] [address] == Patient Name: JOSE FRANCISCO HOPPER : 1960 Sex: M Age: Race: NA^Not available Pt. Location: LP[facility] Patient Status: O Ordered Date: 10/21/2017 10:35:00 AM Completed (more content not included)... [facility] Note 03-18-2012 Telephone Encounter - Madison Rodríguez - 03/18/2012 10:28 AM EDT Note Date & Type Note Facility 03-18-2012 Miscellaneous Notes I telephoned patient to schedule admit date to EMU. Patient stated that he wants to wait until he sees Dr. John Tabor on April 02. He will call back when he and Dr. Tabor make a decision. documented in this encounter [facility] Evaluation note Note Date & Type Note Facility Evaluation note No assessment information availa [facility] Summary Purpose Family History No Family History [...] and content) DATE CREATED AUTHOR 12/16/2017 [facility] DATE CREATED AUTHOR AUTHOR'S ORGANIZ ATION 04/20/2022 [facility] DATE CREATED AUTHOR AUTHOR'S ORGANIZ ATION 08/16/[address] [facility] DATE CREATED AUTHOR AUTHOR'S ORGANIZ ATION 09/16/2023 [facility] EPIC Source Comments (unrecognize d section and content) In the event this informatio n is protected by the Federal Confidentiality of Alcohol and Drug Abuse Patient Records regulations: The Federal rules restrict any use of the information to criminally investigate or prosecute any alcohol or drug abuse patient.[facility] the event this information is protected by the Federal Confidentiality of Alcohol and Drug Abuse Patient Records regulations: The Federal rules restrict any use of the information to criminally investigate or prosecute any alcohol or drug abuse patient.[facility] Reason for Visit (unrecogniz ed section and [...] BE BASED ON THE PRIMARY CLINICAL RECORDS. [employer]. provides no warranty or guarantee of the accuracy or completeness of information in this document.
--- NOTE | 2023-10-03 14:56 | XR_ITS ---
The [address] [address] Patient Name: JOSE RAFAEL MCCORMICK MRN: [id number] date: 1960 Sex: M Assigned Patient Location: ER Current Patient Location: ER Accession/Order Number: [id number] Exam Date: 10/03/2023 15:12 Report Date: 10/03/2023 15:38 At the request of: TAWANNA COATES Procedure: XR ribs LT 2V EXAM: XR ribs LT 2V HISTORY: ribs COMPARISON: None. FINDINGS: [Nondisplaced left-sided fifth rib fracture anterolaterally. No other definitive acute fracture. Partially visualized chest is unremarkable. XR/XR ribs LT 2V IMPRESSION: Suspect nondisplaced left-sided fifth rib fracture anterolaterally. Electronically authenticated by: MAUREEN BLEDSOE Date: 10/03/2023 15:38
[2023-10-03] MEDS: KETOROLAC TROMETHAMINE 60 MG/2 ML VIAL IM (15:08)
[2023-10-03 15:15] VITALS: O2SAT 97
--- NOTE | 2023-10-03 15:26 | ED_ITS ---
HPI HPI - Fall General Chief Complaint: Fall Stated Complaint: FALL Time Seen by Provider: 10/03/23 14:55 Source: patient Mode of arrival: walk-in Limitations: no limitations History of Present Illness HPI Narrative: 63-year-old male presents for chief complaint of left upper chest wall pain. He states he fell approximately 1 week ago. He states he fell against an object catching his arm and then his elbow went into his rib cage. He has had increased left-sided chest wall pain. Some ecchymosis is noted to the left forearm. No crepitus or bruising noted to his chest wall. He is not hypoxic.Denies shortness of breath. He states he just hurts to move occasionally and taking a deep breath. Related Data Previous Rx's ?Medication ?Instructions ?Recorded albuterol sulfate 90 mcg/actuation 1 inh inhalation Q6H PRN shortness 03/24/23 aerosol inhaler of breath or wheezing 5 days #6.7 grams benzonatate 200 mg capsule 200 mg PO TID PRN cough 5 days #15 03/24/23 caps methocarbamol 500 mg tablet 500 mg PO TID PRN pain #10 tabs 10/03/23 Allergies Allergy/AdvReac Type Severity Reaction Status Date / Time No Known Drug Allergies Allergy Verified 03/24/23 14:19 Opioid HPI Opioid Management Most Recent Pain and Opioid Data: Last Pain Scale 8 10/03/23 15:08 Last MAR Pain Assessment 10/03/23 15:08 Review of Systems ROS Narrative All Systems are negative except as noted/marked.All systems reviewed and otherwise negative PFSH PFS Social History Smoking status: Never smoker Exam Narrative Exam Narrative: Nurses note and vital signs reviewed and patient is not hypoxic. General: The patient appears well and in no apparent distress. Patient is resting comfortably on cart. Skin: Warm, dry, no pallor noted. There is no rash noted. Head: Normocephalic, atraumatic Eye: Normal conjunctiva, no drainage, EOMI. PERRL Ears, Nose, Mouth, and Throat: oral mucosa is moist. Nares patent. Mouth without vesicles. Ear canals patent. Tm's without Erythema Cardiovascular: Regular Rate and Rhythm Respiratory: Chest wall tenderness, no crepitus, no obvious ecchymosis, Patient is in no distress, no accessory muscle use, lungs are clear to auscultation, no wheezing, rales or rhonchi Back: non-tender, no CVA tenderness bilaterally to percussion. Musculoskeletal: The patient has no evidence of calf tenderness, no pitting edema, symmetrical pulses noted bilaterally Neurological: A&O x4, normal speech Psychiatric: Cooperative Constitutional Vital Signs, click to edit/add: Last Vital Signs Temp 98.0 F 10/03/23 14:23 Pulse 97 H 10/03/23 14:23 Resp 18 10/03/23 15:15 BP 151/94 H 10/03/23 14:23 Pulse Ox 97 10/03/23 15:15 O2 Del Method Room Air 10/03/23 15:15 Course Vital Signs Vital signs: Vital Signs Temperature 98.0 F 10/03/23 14:23 Pulse Rate 97 H 10/03/23 14:23 Respiratory Rate 18 10/03/23 14:23 Blood Pressure 151/94 H 10/03/23 14:23 Pulse Oximetry 96 10/03/23 14:23 Oxygen Delivery Method Room Air 10/03/23 14:23 Temperature 98.0 F 10/03/23 14:23 Pulse Rate 97 H 10/03/23 14:23 Respiratory Rate 18 10/03/23 15:15 Blood Pressure 151/94 H 10/03/23 14:23 Pulse Oximetry 97 10/03/23 15:15 Oxygen Delivery Method Room Air 10/03/23 15:15 MDM - Fall MDM Narrative Medical decision making narrative: 63-year-old male presented here with chief complaint of left-sided chest wall pain status post fall 1 week ago. Chest and rib x-rays show a nondisplaced left rib fracture. Patient be discharged home with rib fracture instructions. Medicated here with Toradol. Patient was also given pep for Pep therapy to help with inhalation and opening lungs. Patient agrees with plan of care he will follow-up with primary care physician.Patient be discharged home prescription for Robaxin and a handwritten prescription for [facility] Medical Records Attestation: I reviewed the patient's medical records. Imaging Data Chest x-ray: Radiologist's impression: ITS Impressions Chest X-Ray 10/03/23 14:26 IMPRESSION: No acute findings. Electronically authenticated by: MAUREEN BLEDSOE Date: 10/03/2023 15:35 Ribs X-Ray 10/03/23 14:56 IMPRESSION: Suspect nondisplaced left-sided fifth rib fracture anterolaterally. Electronically authenticated by: MAUREEN BLEDSOE Date: 10/03/2023 15:38 Discharge Plan Discharge Stand Alone Forms: Portal Instructions Chief Complaint: Fall Clinical Impression: Fracture of rib Patient Disposition: Home, Self-Care Time of Disposition Decision: 16:04 Condition: Good Prescriptions / Home Meds: New methocarbamol 500 mg tablet 500 mg PO TID PRN (Reason: pain) Qty: 10 0RF No Action albuterol sulfate 90 mcg/actuation HFA aerosol inhaler 1 inh inhalation Q6H PRN (Reason: shortness of breath or wheezing) 5 Days Qty: 6.7 0RF benzonatate 200 mg capsule 200 mg PO TID PRN (Reason: cough) 5 Days Qty: 15 0RF Print Language: Nigerian Instructions: Rib Fracture (ED) Referrals: López Bolivar MD [Primary Care Provider] - 1 week
[2023-10-03 16:20] VITALS: O2SAT 96
== END 2023-10-03 16:23 | disposition home or self-care (01) ==
PROVIDERS: Emergency Provider Emergency Medicine Emergency Medical Services; PCP Family Medicine
DX: S22.32XA Fracture of one rib, left side, initial encounter for closed fracture (principal); W19.XXXA Unspecified fall, initial encounter
CPT/HCPCS: 71046; 71100; 94667; 96372; 99284

== ENCOUNTER 2024-10-03 11:03 | Outpatient (OUT) | payer OTHER, SELFPAY ==
[2024-10-03 12:05] LABS: Anion Gap 9.7; BUN Creatinine Ratio 12.2; Calcium 9.2 mg/dL (8.5-10.1); Carbon Dioxide 28.2 mmol/L (21.0-32.0); Chloride 94 mmol/L (98-107); Estimated GFR (African America >60 (>=60 mL/min/1.73m^2); Estimated GFR (Non-African Ame >60 (>=60 mL/min/1.73m^2); Glucose 135 mg/dL (74-106); Potassium 3.9 mmol/L (3.5-5.1); Sodium 128 mmol/L (136-145)
[2024-10-03 12:09] LABS: Estimated Average Glucose 154 mg/dL
== END 2024-10-03 11:04 | disposition home or self-care (01) ==
PROVIDERS: PCP Family Medicine; Visit Provider Family Medicine
DX: R73.03 Prediabetes (principal)
CPT/HCPCS: 36415; 80048; 83036